=== PATIENT | male | born 2005 | race Caucasian/White ===

== ENCOUNTER 2024-01-06 11:52 | Emergency (ER) | payer SELFPAY ==
[2024-01-06 12:05] VITALS: BP 138/69; PULSE 84; RESP 18; TEMP 36.2
--- NOTE | 2024-01-06 13:54 | PC.NURSE ---
patient left without being seen. advised to return if needed. verbalized understanding
== END 2024-01-06 15:23 | disposition left against medical advice (07) ==
LOC: ANHED 13:59
PROVIDERS: PCP Pediatrics
DX: S01.81XA Laceration without foreign body of other part of head, initial encounter (principal)
CPT/HCPCS: 99199

== ENCOUNTER 2024-01-06 14:11 | Emergency (ER) | payer BC, SELFPAY ==
[2024-01-06 14:27] VITALS: BP 124/70; PULSE 68; RESP 16; TEMP 36.9; O2SAT 98
--- NOTE | 2024-01-06 14:52 | ED.GENADULT ---
HPI - General Adult General Chief complaint: Skin/Abscess/Foreign Body Stated complaint: CHIN LACERATION Time Seen by Provider: 01/06/24 14:54 History of Present Illness HPI narrative: patient presents accompanied by his mother. Patient reports that at approximately 1:30 a.m. this morning he tripped while half asleep, fell down landing on his chin. He has a small laceration that is no longer bleeding. He denies any other injury or trauma. He is unsure of when his last tetanus shot was. He denies any loss of consciousness at the time of the injury. He voices no other concerns or complaints at this time. Related Data Home Medications Medication Instructions Recorded Confirmed No Home Medications 01/06/24 01/06/24 Allergies Allergy/AdvReac Type Severity Reaction Status Date / Time No Known Allergies Allergy Unverified 05/17/18 13:09 Review of Systems Constitutional: Constitutional: Reports as per HPI and Reports no additional constitutional complaints Cardiovascular: Cardiovascular: Reports as per HPI and Reports no additional cardiovascular complaints Respiratory: Respiratory: Reports as per HPI and Reports no additional respiratory complaints Musculoskeletal: Musculoskeletal: Reports no additional musculoskeletal complaints and Reports as per HPI Integumentary/Breasts: Skin/Breast: Reports as per HPI and Reports wounds Exam Const: General: cooperative, healthy appearing, comfortable and no acute distress HENMT: Head: normal to inspection Resp: Effort & Inspection: normal respiratory effort and able to speak in complete sentences Auscultation: clear to auscultation bilaterally Cardio: Heart sounds: S1 normal heart sound present and S2 normal heart sound present Skin: Full body images: 1. 0.5 cm lac. very superficial, no active bleeding Neuro: Cranial nerves: Yes CN's II-XII intact bilaterally Course Course Level of Care: Express Care Visit Vital Signs Vital signs: Vital Signs Temperature 98.4 F 01/06/24 14:27 Pulse Rate 68 01/06/24 14:27 Respiratory Rate 16 01/06/24 14:27 Blood Pressure 124/70 01/06/24 14:27 Pulse Oximetry 98 01/06/24 14:27 Temperature 98.4 F 01/06/24 14:27 Pulse Rate 68 01/06/24 14:27 Respiratory Rate 16 01/06/24 14:27 Blood Pressure 124/70 01/06/24 14:27 Pulse Oximetry 98 01/06/24 14:27 Procedures Laceration Laceration 1: Date: 01/06/24 Time: 15:06 Site: face Size (cm): 0.5 Description: stellate and clean Depth: simple, single layer Pre-repair: irrigated ====== Skin Level ====== ====== Subcutaneous Layer ====== ====== Muscle Layer ====== ====== Tendon Layer ====== Dressing: Repaired with Dermabond and Steri-Strips, tetanus updated Medical Decision Making MDM Narrative Medical decision making narrative: patient with extremely shallow small wound to the chin. Happened approximately 14 hours ago. No active bleeding. Easily repaired with Steri-Strips and Dermabond. Tetanus updated. Emergency department for new or worsening symptoms, follow up with primary care provider Differential Diagnosis Differential Diagnosis: differential diagnosis includes laceration, abrasion Medical Records Medical records reviewed: Yes I reviewed the external patient's medical records. Vital Signs Vital Signs: Vital Signs Temperature 98.4 F 01/06/24 14:27 Pulse Rate 68 01/06/24 14:27 Respiratory Rate 16 01/06/24 14:27 Blood Pressure 124/70 01/06/24 14:27 Pulse Oximetry 98 01/06/24 14:27 Temperature 98.4 F 01/06/24 14:27 Pulse Rate 68 01/06/24 14:27 Respiratory Rate 16 01/06/24 14:27 Blood Pressure 124/70 01/06/24 14:27 Pulse Oximetry 98 01/06/24 14:27 Discharge Plan Discharge Clinical Impression: Laceration Patient Disposition: Home, Self-Care Condition: Stable Instructions: Laceration (ED),
[2024-01-06] MEDS: TETANUS,DIPHTHERIA,AC PERTUSSIS ADULT (0.5 ML) BOOSTRIX IM (15:04)
== END 2024-01-06 15:28 | disposition home or self-care (01) ==
PROVIDERS: Emergency Provider Nurse Practitioner Family; PCP Family Medicine
DX: S01.81XA Laceration without foreign body of other part of head, initial encounter (principal); W01.0XXA Fall on same level from slipping, tripping and stumbling without subsequent striking against object, initial encounter; Z23 Encounter for immunization
CPT/HCPCS: 12011; 90471; 90715; 99212; G0463